=== PATIENT | male | born 1945 | race Caucasian/White ===

== ENCOUNTER 2016-06-22 09:40 | Emergency (ER) | payer OTHER ==
--- NOTE | 2016-06-22 10:00 | PDOC ---
Dizziness HPI - General Chief Complaint: Neurological Complaints Stated Complaint: DIZZINESS STARTING THIS AM Date Seen by Provider: 06/22/16 Time Seen by Provider: 09:53 Source: POSITIVE: Patient Exam Limitations: POSITIVE: No limitations Nurse's Notes Reviewed & Considered: Yes - History of Present Illness Initial Comments: Patient comes in today complaining of dizziness. Patient awoke this morning at 03:00 with dizziness, feeling as though the room was spinning around him. He has had intermittent episodes of the last 3 weeks. He was recently hospitalized with atrial fibrillation. Denies any fevers chills or sweats, nausea or vomiting or diarrhea, no body aches or joint aches. Denies any chest pain, but does have a cough and chronic shortness of breath related to his COPD. Body Location Affected: REPORTS: Head Timing: REPORTS: Abrupt Duration: <24 hours Context: REPORTS: Sleep Quality: REPORTS: Other (Dizziness) Associated Symptoms: REPORTS: Sense of Spinning Current Ability to Walk/Stand: REPORTS: Difficulty Walking Usual Ability to Walk/Stand: REPORTS: Walks w/o Assistance Aggrevated by: REPORTS: Position Changes Similar Symptoms Previously: Yes Recently seen/treated/hospitalized: Yes Any Prior Injuries Related to Current Complaint?: No - Patient Home Medications Home Medications: Home Medications Fluticasone/Salmeterol [Advair 250-50 Diskus] 2 each IH DAILY 10/19/10 Tiotropium Inhalation Cap [Spiriva Inhalation Cap] 18 mcg IH DAILY 10/19/10 Fish Oil 1,200 Mg Softgel 2 each PO DAILY 08/11/12 Garlic 1,000 mg PO DAILY 12/06/15 Amiodarone HCl 200 mg PO DAILY #30 tablet 12/16/15 Atenolol [Tenormin] 25 mg PO DAILY #30 01/06/16 Fexofenadine HCl [Ju Allergy] 180 mg PO DAILY #120 01/06/16 Lisinopril 2.5 mg PO DAILY #30 tab 01/06/16 Acetaminophen [Tylenol] 500 mg PO QD #0 tab 01/07/16 Finasteride 5 mg PO DAILY #90 tab 01/14/16 Omeprazole 1 cap PO DAILY #90 cap 01/14/16 Tamsulosin HCl 1 cap PO QHS #90 cap 01/14/16 Furosemide 1 tab PO DAILY #30 tab 01/17/16 Fluticasone Propionate 1 spr JANEE PRN #1 bottle 01/22/16 Simvastatin 1 tab PO DAILY #90 tab 04/11/16 Hydrocodone/Acetaminophen [Hydrocodon-Acetaminophen 5-325] 1 tab-cap PO Q6H # 100 tab 05/05/16 Finasteride [Proscar] 5 mg PO BEDTIME 06/22/16 - Patient Allergies Allergies/Adverse Reactions: Allergies Allergy/AdvReac Type Severity Reaction Status Date / Time Penicillins Allergy Unknown NOT Verified 06/22/16 09:57 APPLICABLE ONIONS Allergy Unknown Anaphylaxis Uncoded 06/22/16 09:57 Past Medical History - heen HEENT History: Hard of Hearing, Dentures/Partials, Other (please comment) Additional HEENT History: WEARS GLASSES. Has hearing aids but doesn't wear them. Top and bottom dentures. Cardiovascular History: Hypertension, Congenital Heart Disease, Hyperlipidemia Additional Cardiovasular History: Hx of cardiomyopathy...ejection fraction of 30 %. Respiratory History: Asthma, COPD, Home Oxygen Use, Home CPAP Use Additional Respiratory History: USES O2 1.5L @[facility] WITH CPAP. 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 Htn - parents, siblings. Sister - cancer (breast). Dad -lung cancer ROS - Limitations ROS Limitations: No Limitations Constitution: REPORTS: Denies Symptoms Cardiovascular: REPORTS: Blood Pressure Problem, Edema Respiratory: REPORTS: Shortness Of Breath, Wheezing Neurological: REPORTS: Denies Neuro Symptoms Gastrointestinal: REPORTS: Denies GI Symptoms Endocrine: REPORTS: Denies Symptoms Musculoskeletal: REPORTS: Denies MS Symptoms Genitourinary: REPORTS: Denies Symptoms Eyes: REPORTS: Denies Symptoms ENT: REPORTS: Denies Symptoms Skin: REPORTS: Denies Skin Symptoms Lympathic: REPORTS: Denies Lympathic Symptoms Immunologic: POSITIVE: Denies Symptoms Psychiatric: POSITIVE: Denies Psych Symptoms Dizziness PE - General Appearance General Appearance: POSITIVE: No Acute Distress, Alert - HEENT HEENT: POSITIVE: Head Inspection Nml, Eyes Inspection Nml, Ears Inspection Nml, Nose Inspection Nml, PERRL, EOMI - Pupil Size Pupil Size: 5 mm: Bilateral - Neck Neck: POSITIVE: Supple - Respiratory Respiratory: POSITIVE: No Respiratory Distress, Wheezes - Cardiovascular Cardiovascular: POSITIVE: Regular Rate & Rhythm, No Murmur, No Gallop, Heart Sounds Normal - Abdomen Abdomen: Soft: (All Quadrants), Normal Bowel Sounds: (All Quadrants), Denies Tenderness: (All Quadrants) - Skin Skin: POSITIVE: Intact, Normal For Race, Warm, Dry, No Rash - Extremities Extremity: Non-Tender: (All Extremities), Normal ROM: (All Extremities), Normal Inspection: (All Extremities) - Neuro/Psych Neuro/Psych: POSITIVE: Alert, Affect Appropriate, Mood Appropriate, Normal Speech, Normal Cognition Cranial Nerves: POSITIVE: Normal As Tested, No Evidence of Acute CVA Cerebellar: POSITIVE: Normal As Tested Sensorimotor: POSITIVE: No Motor Deficits, No Sensory Deficits Dizziness Progress - Results Reviewed by me Xrays/CTs/US Reviewed by me: Yes Discussed with Radiologist: Yes Lab Results Reviewed: Yes Lab Results:: Laboratory Results 06/22/16 Range/Units 10:20 WBC 8.06 (4.8-10.8) 10^3/uL RBC 4.80 (4.70-6.10) 10^6/uL Hgb 12.5 L (14.0-18.0) g/dL Hct 40.0 L (42.0-52.0) % MCV 83.3 (80-90) FL MCH 26.0 L (27-31) PG MCHC 31.3 L (33-37) g/dL RDW Std Deviation 48.9 (39-50) fL RDW Coeff of Jesus 16.3 H (11.5-14.5) % Plt Count 281 (140-350) 10*3/uL MPV 10.2 (7.4-12.2) FL Immature Gran % (Auto) 0.1 (0-5) % Neut % (Auto) 79.3 (50-80) % Lymph % (Auto) 12.2 (10-50) % [place] % (Auto) 6.1 (5-15) % Eos % (Auto) 2.2 (0-8) % Baso % (Auto) 0.1 (0-1) % Immature Gran # (Auto) 0.01 10*3/UL Neut # (Auto) 6.39 10*3/UL Lymph # (Auto) 0.98 10*3/uL [place] # (Auto) 0.49 (0.3-0.8) 10*3/UL Eos # (Auto) 0.18 10*3/UL Baso # (Auto) 0.01 10*3/UL WBC Morphology Comment Normal morphology (NORM) Plt Morphology Comment Normal morphology (NORM) RBC Morph Comment Normal morphology (NORM) Sodium 139 (135-145) meq/L Potassium 4.4 (3.8-5.2) meq/L Chloride 101 (98-112) meq/L Carbon Dioxide 27 (23-33) meq/L Anion Gap 11 (5-20) BUN 19 (7-22) mg/dL Creatinine 1.0 (0.70-1.50) mg/dL Estimated GFR (>60 ml/min/1.73m(2)) BUN/Creatinine Ratio 19.00 (6-20) Glucose 145 H (78-110) mg/dL Calculated Osmolality 292.0 (267-292) mOsm/kg Calcium 8.8 (8.7-10.7) mg/dL Magnesium 2.2 (1.6-2.4) mg/dL Total Bilirubin 0.9 (0.3-1.2) mg/dL AST 23 (21-57) IU/L ALT 35 (21-72) IU/L Alkaline Phosphatase 54 (38-126) IU/L NT-Pro-B Natriuret Pep 961 H (0-125) PG/ML Total Protein 6.6 (6.1-8.0) g/dL Albumin 3.8 (3.5-4.8) g/dL Globulin 2.8 (2.50-4.10) g/dL Albumin/Globulin Ratio 1.30 (1.3-2.0) mg/g TSH 1.75 (0.2700-4.2000) uIU/mL Free T4 1.27 (0.93-1.71) ng/dL EKG Interpretation:: POSITIVE: Normal Sinus Rhythm - Patient's Progress Pain Medication Addressed: POSITIVE: Yes Re-Examine Time:: 15:42 (Dizziness resolved) Status: POSITIVE: Improved MDM / ED Course: Patient was brought into the emergency Department, examined, an IV was started and blood drawn and sent to the lab for studies, radiographic studies obtained. Patient received normal saline, Zofran for nausea and his dizziness resolved. Assessment: Dizziness Plan: Discharge home. CVA/Syncope Quality Measure Initiative: POSITIVE: EKG - Consult Counseled: POSITIVE: Patient, Family, RE: Lab Results, RE: Radiology Results, RE : DX, RE: Need for F/U Patient Care Time - Estimated PCT Patient Care Time (In Minutes): 60 Vital Signs - Recent Vital Signs Vital Signs: Vital Signs (Last 8 hours) Temp Pulse Pulse Resp BP Pulse Ox 06/22/16 10:15 56 L 06/22/16 09:40 97.4 F 58 L 19 152/84 96 - VS Reviewed Vital Signs Reviewed: Yes Discharge Clinical Impression: Dizziness Discharge Disposition: Discharged to Home Condition: Good Patient Instructions Given at Discharge: Dizziness (ED)
[2016-06-22] MEDS ORDERED: IPRATROPIUM/ALBUTEROL SULFATE 3 ML NEB NEB ONE (10:10)
--- NOTE | 2016-06-22 10:16 | EKG ---
[address] [place] [address] [place] [address] Measurements Intervals [place] Rate: 56 P: 65 [place]: 199 QRS: 33 QRSD: 125 T: 54 QT: 506 QTc: 497 Interpretive Statements SINUS BRADYCARDIA POSSIBLE ANTERIOR MYOCARDIAL INFARCTION ,OLD PROLONGED QTc INTERVAL Compared to ECG 01/03/2016 20:46:56 Sinus rhythm no longer present Myocardial infarct finding still present Prolonged QTc interval still present Electronically Signed On 06-22-16 12:14:14 [facility] by Amaury Vega [email or web address]
[2016-06-22] MEDS: NORMAL SALINE 10 ML SYRINGE FLUSH IVP PRN (10:20)
[2016-06-22] MEDS: IPRATROPIUM/ALBUTEROL SULFATE 3 ML NEB NEB ONE (10:21)
[2016-06-22 10:30] LABS: BASOPHILS # (AUTO) 0.01 10*3/UL; BASOPHILS % (AUTO) 0.1 % (0-1); EOSINOPHILS % (AUTO) 2.2 % (0-8); HEMOGLOBIN 12.5 g/dL (14.0-18.0); IMM GRAN % (AUTO) 0.1 % (0-5); IMM GRAN# (AUTO) 0.01 10*3/UL; LYMPHOCYTES # (AUTO) 0.98 10*3/uL; LYMPHOCYTES % (AUTO) 12.2 % (10-50); MEAN CORPUSCULAR HGB CONC 31.3 g/dL (33-37); MEAN PLATELET VOLUME 10.2 FL (7.4-12.2); MONOCYTES # (AUTO) 0.49 10*3/UL (0.3-0.8); MONOCYTES % (AUTO) 6.1 % (5-15); NEUTROPHILS # (AUTO) 6.39 10*3/UL; NEUTROPHILS % (AUTO) 79.3 % (50-80); RDW COEFFICIENT OF VARIATION 16.3 % (11.5-14.5); WHITE BLOOD COUNT 8.06 10^3/uL (4.8-10.8)
[2016-06-22 10:37] LABS: PLATELET MORPHOLOGY COMMENT NORMAL MORPHOLOGY (NORM)
[2016-06-22 10:41] LABS: BILIRUBIN,TOTAL 0.9 mg/dL (0.3-1.2); CALCIUM 8.8 mg/dL (8.7-10.7); MAGNESIUM 2.2 mg/dL (1.6-2.4); POTASSIUM 4.4 meq/L (3.8-5.2); TOTAL PROTEIN 6.6 g/dL (6.1-8.0)
[2016-06-22 10:59] VITALS: RESP 19; TEMP 97.4
[2016-06-22 11:01] LABS: FREE T4 (FREE THYROXINE) 1.27 ng/dL (0.93-1.71)
--- NOTE | 2016-06-22 12:17 | DI ---
HISTORY: Cough. COMPARISON: 03/31/2016. FINDINGS: Frontal and lateral chest radiographs, compared to 03/31/2016, demonstrate well aerated shantel ngs without evidence of pneumothorax or pleural effusion. An ill-defined air space opacity is noted adjacent to the left heart border, not well seen on the lateral image, likely involving the left lowe r lobe. The right lung is clear. The cardiomediastinal silhouette and pulmonary vascularity appear normal. Bones and extrathoracic soft tissues are unremarkable. IMPRESSION: 1. Ill-defined left lower lobe airspace opacity, possibly representing an evolving airspace infectiou s process or possibly neoplasm. NOTIFICATION: The above findings were sent to Nik Estrada in the ER Department on 06/22/2016 at 02:25 PM EST.
--- NOTE | 2016-06-22 12:37 | DI ---
HISTORY: Dizziness. COMPARISON: 02/06/2016. TECHNIQUE: Contiguous 5 mm images were obtained from the vertex through the skull base without the u se of intravenous contrast. 39 images. FINDINGS: Brain parenchyma is unremarkable. Normal appearance of the ventricles and CSF spaces. Th ere is minimal patchy hypoattenuation of the supratentorial white matter consistent with chronic smal l vessel ischemic changes. Nguyễn-white differentiation is maintained. No dense vessel sign, obscuration of the basal ganglia, loss of insular ribbon or other evidence of a cute vascular territorial infarction. There is no evidence of acute intracranial hemorrhage, herniat ion or hydrocephalus. No evidence of calvarial fracture. Visualized portions of the skull base and craniocervical junction appear normal. Paranasal sinuses are clear. The patient is edentulous. Normal appearance of the o rbits and intraorbital contents. IMPRESSION: 1. No evidence of acute intracranial abnormality.
--- NOTE | 2016-06-22 15:35 | DI ---
HISTORY: Cough. Questionable mass found on chest x-ray. COMPARISON: PA/Lat chest radiograph dated 06/22/2016. TECHNIQUE: Contiguous helical 3 mm images were obtained from the thoracic inlet through the upper ab domen after administration of 100 cc nonionic contrast. Additional images were reconstructed in bone windows with both sagittal and coronal reformats provided. 492 images FINDINGS: MEDIASTINUM: Thoracic inlet is clear. No suspicious axillary, hilar, or mediastinal adenopathy is s een. The great vessels, heart, and pericardium appear normal. Mild atheromatous calcifications seen involving the thoracic aorta and aortic arch. LUNGS/AIRWAYS: Mild focal parenchymal scarring noted at the left lung base adjacent to the cardiac a pex, likely corresponding to the finding seen on the comparison chest study. Similar finding noted a t the right lung base and the left lung apex. There is mild bilateral dependent atelectasis. The shantel ngs are otherwise clear without evidence of nodule or mass. The central airways are patent. There i s no evidence of intrabronchial lesion, bronchiectasis, or airway thickening. PLEURA: No pleural effusions, calcifications, or thickening is present. ABDOMEN: Visualized portions of the upper abdomen are unremarkable. MUSCULOSKELETAL: Bone mineralization is adequate. There is no acute fracture. There is mild chroni c loss of vertebral body height at T6-T9 and L1. IMPRESSION: 1. No evidence of acute cardiac or pulmonary disease. 2. Mild multifocal parenchymal scarring at both lung bases.
== END 2016-06-22 16:21 | disposition home or self-care (01) ==
LOC: ER 09:40
DX: R42 Dizziness and giddiness (principal); R05 Cough; J44.9 Chronic obstructive pulmonary disease, unspecified
CPT/HCPCS: 70450; 71020; 71260; 80053; 83735; 83880; 84439; 84443; 85025; 93005; 93010; 94640; 99283 ×2; J7620

== ENCOUNTER → 2016-07-02 | Outpatient (CLI) | payer OTHER ==
[2016-07-02 12:58] LABS: BASOPHILS # (AUTO) 0.01 10*3/UL; BASOPHILS % (AUTO) 0.1 % (0-1); EOSINOPHILS % (AUTO) 0.2 % (0-8); HEMATOCRIT 43.8 % (42.0-52.0); HEMOGLOBIN 13.8 g/dL (14.0-18.0); IMM GRAN % (AUTO) 0.4 % (0-5); IMM GRAN# (AUTO) 0.04 10*3/UL; LYMPHOCYTES % (AUTO) 5.6 % (10-50); MEAN CORPUSCULAR HEMOGLOBIN 26.5 PG (27-31); MEAN CORPUSCULAR HGB CONC 31.5 g/dL (33-37); MONOCYTES # (AUTO) 0.21 10*3/UL (0.3-0.8); MONOCYTES % (AUTO) 1.9 % (5-15); NEUTROPHILS # (AUTO) 9.89 10*3/UL; NEUTROPHILS % (AUTO) 91.8 % (50-80); RDW COEFFICIENT OF VARIATION 16.3 % (11.5-14.5); RED BLOOD COUNT 5.21 10^6/uL (4.70-6.10); WHITE BLOOD COUNT 10.77 10^3/uL (4.8-10.8)
[2016-07-02 13:00] LABS: PLATELET MORPHOLOGY COMMENT NORMAL MORPHOLOGY (NORM)
[2016-07-02 13:28] LABS: CALCIUM 9.5 mg/dL (8.7-10.7); POTASSIUM 4.9 meq/L (3.8-5.2)
--- NOTE | 2016-07-02 15:50 | DI ---
History: Chest x-ray followup to chest CT. Prior examination: 06/22/16. Procedure: 2 view study. Findings: There is no evidence of focal infiltrate. No effusion identified. No cardiac enlargement. L ungs are slightly hyperexpanded. Impression: Slight pulmonary hyperexpansion. No focal or acute pulmonary process observed
== END ==
LOC: LAB 12:42
PROVIDERS: ATTEND Internal Medicine
DX: E11.59 Type 2 diabetes mellitus with other circulatory complications (principal); J44.9 Chronic obstructive pulmonary disease, unspecified; R93.8 Abnormal findings on diagnostic imaging of other specified body structures; R79.9 Abnormal finding of blood chemistry, unspecified; R42 Dizziness and giddiness; R06.82 Tachypnea, not elsewhere classified; I10 Essential (primary) hypertension; E66.01 Morbid (severe) obesity due to excess calories; Z87.891 Personal history of nicotine dependence
CPT/HCPCS: 36415; 71020; 80048; 83880; 85025; 99214; G0463

== ENCOUNTER → 2016-07-23 | Outpatient (CLI) | payer OTHER | LOC: MMPC 09:00 | PROVIDERS: ATTEND Internal Medicine | DX: E11.9 Type 2 diabetes mellitus without complications (principal); I10 Essential (primary) hypertension; J44.9 Chronic obstructive pulmonary disease, unspecified; N19 Unspecified kidney failure; E78.5 Hyperlipidemia, unspecified | CPT/HCPCS: G0108 ==

== ENCOUNTER → 2016-08-01 | Outpatient (CLI) | payer OTHER ==
--- NOTE | 2016-08-01 12:11 | DI ---
XR WRIST COMPLETE MIN 3VW,08/01/2016 10:32 AM: Clinical History: None this in fingers. Previous Exam: January 13, 2013 contralateral wrist. Findings: 3 views of the left wrist are obtained, and demonstrate a curvilinear calcification involving the lef t ulnar styloid. There are no acute fractures identified. Impression: Old injury of the left ulnar styloid.
== END ==
LOC: ORTHO 10:39
PROVIDERS: ATTEND Orthopaedic Surgery
DX: R20.0 Anesthesia of skin (principal); G56.22 Lesion of ulnar nerve, left upper limb
CPT/HCPCS: 73110; 99214; G0463

== ENCOUNTER → 2016-08-13 | Outpatient (CLI) | payer OTHER | LOC: MOB LAB 12:14 | PROVIDERS: ATTEND Internal Medicine | DX: R79.9 Abnormal finding of blood chemistry, unspecified (principal); I10 Essential (primary) hypertension; I48.0 Paroxysmal atrial fibrillation; J44.9 Chronic obstructive pulmonary disease, unspecified; F17.210 Nicotine dependence, cigarettes, uncomplicated | CPT/HCPCS: 36415; 83880 ==

== ENCOUNTER → 2016-08-13 | Outpatient (CLI) | payer OTHER | LOC: MMPC 11:11 | PROVIDERS: ATTEND Internal Medicine | DX: J44.9 Chronic obstructive pulmonary disease, unspecified (principal); I10 Essential (primary) hypertension; I48.0 Paroxysmal atrial fibrillation; N40.1 Benign prostatic hyperplasia with lower urinary tract symptoms ==

== ENCOUNTER → 2016-08-18 | Outpatient (CLI) | payer OTHER | LOC: MMPC 10:00 | PROVIDERS: ATTEND Orthopaedic Surgery | DX: G56.22 Lesion of ulnar nerve, left upper limb (principal); G56.02 Carpal tunnel syndrome, left upper limb | CPT/HCPCS: 99213; G0463 ==

== ENCOUNTER → 2016-08-26 | Outpatient (CLI) | payer OTHER ==
[2016-08-26 09:45] LABS: HEMATOCRIT 43.6 % (42.0-52.0); HEMOGLOBIN 13.4 g/dL (14.0-18.0); MEAN CORPUSCULAR HEMOGLOBIN 26.9 PG (27-31); MEAN CORPUSCULAR HGB CONC 30.7 g/dL (33-37); MEAN PLATELET VOLUME 10.3 FL (7.4-12.2); RDW COEFFICIENT OF VARIATION 15.2 % (11.5-14.5); RED BLOOD COUNT 4.98 10^6/uL (4.70-6.10); WHITE BLOOD COUNT 11.71 10^3/uL (4.8-10.8)
[2016-08-26 09:57] LABS: CALCIUM 9.1 mg/dL (8.7-10.7); POTASSIUM 4.7 meq/L (3.8-5.2)
== END ==
LOC: LAB 09:28
PROVIDERS: ATTEND Orthopaedic Surgery
DX: G56.02 Carpal tunnel syndrome, left upper limb (principal); G56.22 Lesion of ulnar nerve, left upper limb; I10 Essential (primary) hypertension; N17.9 Acute kidney failure, unspecified; J44.9 Chronic obstructive pulmonary disease, unspecified; Z22.322 Carrier or suspected carrier of Methicillin resistant Staphylococcus aureus
CPT/HCPCS: 36415; 80048; 85027; 87641

== ENCOUNTER 2016-09-02 09:13 | Day surgery (SDC) | payer OTHER ==
[~2016-09-02 09:13] MED LIST: Clindamycin 900mg (Premix) 50 ML IV ONE; LIDOCAINE W/ SODIUM BICARB 0.5 ML SYR ONE; Lactated Ringers 1,000 ML PRIMARY IV ONE
[2016-09-02] MEDS ORDERED: BACITRACIN 50,000 UNIT VIAL IRRIG ONE (09:28)
[2016-09-02] MEDS ORDERED: BUPivacaine Inj 0.25% PF - 10ml vial ONE (09:28)
[2016-09-02] MEDS ORDERED: Sodium Chloride 0.9% vial 10 ML ONE (09:29)
[2016-09-02 10:16] VITALS: RESP 26
[2016-09-02] MEDS ORDERED: fentaNYL Inj 100 MCG/2 ML VIAL ONE (10:19)
[2016-09-02] MEDS ORDERED: LIDOCAINE 2%/ EPI 1:200,000 - 20 ML VIAL ONE (10:19)
[2016-09-02] MEDS ORDERED: BUPIVACAINE 0.5% W/ EPI - 10 ML VIAL ONE (10:19)
[2016-09-02] MEDS ORDERED: MIDAZOLAM 5 MG/1 ML ONE (10:19)
--- NOTE | 2016-09-02 11:23 | CRNA.PROCE ---
Nerve Block Documentation - - Safety Measures: Time Out Taken, Site Verified - - Type of Nerve Block Used: Left Infraclavicular Block Position for Nerve Block: Supine Moniters Used During Block: EKG, SPO2, NIBP Oxygen Sumpplented: Yes Sedation Used - Enter Amount in Comment Field: Midazolam (mg): Yes (3mg iv), Fentanyl (mcg): Yes (50mcg iv) Skin Prep Used: ChloroPrep Technique: Nerve Stimulator Nerve Block Needle Used: 80 mm ProBlk II Stimulation Hz: 1.0 Stimulation Staring mA: 1.2 Stimulation Ending mA: 0.5 Local Anesthetic - Enter Amt in Comment Field: 0.5 % Bupivicaine with Epinephrine 1:200,000 (mL): Yes (20ml), 2 % Xylocaine with Epinephrine 1:200, 000 (mL): Yes (20ml)
[2016-09-02] MEDS ORDERED: Lactated Ringers 1,000 ML PRIMARY IV ONE (11:49)
[2016-09-02] MEDS ORDERED: MORPHINE SULFATE 2 MG/1 ML IVP PRN (13:25)
[2016-09-02] MEDS ORDERED: MAG HYDROX/AL HYDROX/SIMETH 30 ML SUSP PO PRN (13:25)
[2016-09-02] MEDS ORDERED: Ondansetron ODT Tab 8 MG TAB PO PRN (13:25)
[2016-09-02] MEDS ORDERED: ACETAMINOPHEN 325 MG TABLET PO PRN (13:25)
[2016-09-02] MEDS ORDERED: NORMAL SALINE 10 ML SYRINGE FLUSH IVP PRN (13:25)
[2016-09-02] MEDS ORDERED: Prochlorperazine Tab 10 MG TAB PO PRN (13:25)
[2016-09-02] MEDS ORDERED: CALCIUM CARBONATE 500 MG (TUMS) CHEWABLE TABLET PO PRN (13:25)
[2016-09-02] MEDS ORDERED: ONDANSETRON 4 MG/2 ML VIAL IVP PRN (13:25)
[2016-09-02] MEDS ORDERED: BISACODYL 10 MG SUPPOSITORY RECTAL PRN (13:25)
[2016-09-02] MEDS ORDERED: BISACODYL 5 MG TABLET PO PRN (13:25)
[2016-09-02] MEDS ORDERED: IBUPROFEN 400 MG TABLET PO PRN (13:25)
[2016-09-02] MEDS ORDERED: diphenhydrAMINE 25 MG CAPSULE PO PRN (13:25)
[2016-09-02] MEDS ORDERED: HYDROcodone-APAP 7.5 MG-325 MG TABLET PO PRN (13:25)
[2016-09-02] MEDS ORDERED: Lactated Ringers 1,000 ML PRIMARY IV SCH (13:30)
[2016-09-02 15:34] VITALS: TEMP 97.7
== END 2016-09-02 14:34 | disposition home or self-care (01) ==
LOC: SDSC 09:13
PROVIDERS: ATTEND Orthopaedic Surgery
DX: G56.22 Lesion of ulnar nerve, left upper limb (principal)
CPT/HCPCS: 64718; 87641; A4216; J2704; J3010; J2250; J3490; J7120

== ENCOUNTER → 2016-09-05 | Outpatient (CLI) | payer OTHER | LOC: MMPC 10:00 | PROVIDERS: ATTEND Orthopaedic Surgery | DX: G56.22 Lesion of ulnar nerve, left upper limb (principal) ==

== ENCOUNTER → 2016-09-23 | Outpatient (CLI) | payer OTHER | LOC: MMPC 10:00 | PROVIDERS: ATTEND Orthopaedic Surgery | DX: G56.22 Lesion of ulnar nerve, left upper limb (principal); G56.02 Carpal tunnel syndrome, left upper limb ==

== ENCOUNTER → 2016-11-07 | Outpatient (CLI) | payer OTHER | LOC: MMPC 10:00 | PROVIDERS: ATTEND Orthopaedic Surgery | DX: G56.22 Lesion of ulnar nerve, left upper limb (principal) ==

== ENCOUNTER → 2016-12-17 | Outpatient (CLI) | payer OTHER | LOC: MMPC 11:11 | PROVIDERS: ATTEND Internal Medicine | DX: J44.9 Chronic obstructive pulmonary disease, unspecified (principal); K21.9 Gastro-esophageal reflux disease without esophagitis; I10 Essential (primary) hypertension; I48.0 Paroxysmal atrial fibrillation; E78.5 Hyperlipidemia, unspecified; E66.9 Obesity, unspecified; J30.9 Allergic rhinitis, unspecified; N40.0 Benign prostatic hyperplasia without lower urinary tract symptoms; E11.59 Type 2 diabetes mellitus with other circulatory complications | CPT/HCPCS: 99213; G0463 ==

== ENCOUNTER → 2017-01-16 | Outpatient (CLI) | payer OTHER | LOC: MMPC 10:00 | PROVIDERS: ATTEND Orthopaedic Surgery | DX: G56.22 Lesion of ulnar nerve, left upper limb (principal); G56.02 Carpal tunnel syndrome, left upper limb; Z98.890 Other specified postprocedural states | CPT/HCPCS: 99213; G0463 ==

== ENCOUNTER → 2017-02-04 | Outpatient (CLI) | payer OTHER | LOC: LAB 14:03 | PROVIDERS: ATTEND Internal Medicine | DX: G56.22 Lesion of ulnar nerve, left upper limb (principal); G56.02 Carpal tunnel syndrome, left upper limb | CPT/HCPCS: 87641 ==

== ENCOUNTER 2019-04-01 13:28 | Inpatient (IN) ==
[2019-04-01] MEDS ORDERED: methylPREDNISolone 125 MG/2 ML VIAL IVP ONE (14:00)
[2019-04-01 14:15] LABS: Hematocrit [HCT] 36.6 % (42.0-52.0); Hemoglobin [HGB] 11.2 g/dL (14.0-18.0); MEAN CORPUSCULAR HGB CONC 30.6 g/dL (33-37); MEAN CORPUSCULAR VOLUME 87.4 FL (80-90); MEAN PLATELET VOLUME 10.1 FL (7.4-12.2); RED BLOOD COUNT 4.19 10^6/uL (4.70-6.10)
[2019-04-01 14:16] LABS: BASOPHILS # (AUTO) 0.05 10*3/UL; BASOPHILS % (AUTO) 0.4 % (0-1); EOSINOPHILS # (AUTO) 0.49 10*3/UL; EOSINOPHILS % (AUTO) 3.7 % (0-8); LYMPHOCYTES # (AUTO) 1.05 10*3/uL; MONOCYTES # (AUTO) 0.76 10*3/UL (0.3-0.8); MONOCYTES % (AUTO) 5.7 % (5-15); NEUTROPHILS # (AUTO) 10.82 10*3/UL; NEUTROPHILS % (AUTO) 81.9 % (50-80); PLATELET MORPHOLOGY COMMENT NORMAL MORPHOLOGY (NORM); RBC MORPHOLOGY COMMENT NORMAL MORPHOLOGY (NORM); WBC MORPHOLOGY COMMENT NORMAL MORPHOLOGY (NORM)
[2019-04-01 14:22] LABS: BUN/CREATININE RATIO 17.14 (6-20)
[2019-04-01 14:31] LABS: ABG BASE EXCESS -1 MMOL/L (-2-2); ABG OXYGEN SATURATION 93 % (90-100); ABG PCO2 41 MMHG (34-38); ABG PH 7.38 (7.35-7.45); ABG PO2 69 MMHG (65-75); ALLEN TEST Y
[2019-04-01] MEDS ORDERED: cefTRIAXone Inj 1 GM in Sodium Chloride 0.9% 100 ML IV ONE (16:13)
[2019-04-01] MEDS ORDERED: LIDOCAINE W/ SODIUM BICARB 0.5 ML SYR SUBD PRN (17:16)
[2019-04-01] MEDS ORDERED: ONDANSETRON 4 MG/2 ML VIAL IVP PRN (17:16)
[2019-04-01] MEDS ORDERED: CALCIUM CARBONATE 500 MG (TUMS) CHEWABLE TABLET PO PRN (17:16)
[2019-04-01] MEDS ORDERED: DOCUSATE 100 MG CAPSULE PO PRN (17:16)
[2019-04-01] MEDS ORDERED: Influenza 19-20 Vaccine (6mo+) 60 MCG/0.5 ML SYRINGE IM ONE (17:23)
[2019-04-01] MEDS ORDERED: ALBUTEROL SULFATE 2.5 MG/3 ML NEB PRN (17:24)
[2019-04-01] MEDS ORDERED: LEVALBUTEROL HCL 1.25 MG/3 ML NEB PRN (17:30)
[2019-04-01] MEDS: LEVALBUTEROL HCL 1.25 MG/3 ML NEB SCH (18:45)
[2019-04-01] MEDS: FLUTICASONE/SALMETEROL 500/50 UD INHALER INH SCH (18:49)
[2019-04-01] MEDS ORDERED: IPRATROPIUM/ALBUTEROL SULFATE 3 ML NEB NEB SCH (19:00)
[2019-04-01] MEDS: TAMSULOSIN 0.4 MG CAPSULE PO SCH (20:41)
[2019-04-01] MEDS: methylPREDNISolone 40 MG/1 ML VIAL IVP SCH (20:41)
[2019-04-01] MEDS: FINASTERIDE 5 MG TABLET PO SCH (20:41)
[2019-04-01] MEDS: FERROUS SULFATE 325 MG TABLET PO SCH (20:41)
[2019-04-01] MEDS: Simvastatin Tab 40 MG TAB PO SCH (20:42)
[2019-04-01] MEDS ORDERED: metFORMIN 500 MG TABLET PO SCH (21:00)
[2019-04-02] MEDS: LEVALBUTEROL HCL 1.25 MG/3 ML NEB SCH ×4 (01:44→18:52)
[2019-04-02] MEDS: methylPREDNISolone 40 MG/1 ML VIAL IVP SCH ×4 (03:09→20:22)
[2019-04-02] MEDS: ACETAMINOPHEN 325 MG TABLET PO PRN ×3 (03:11→21:32)
[2019-04-02] MEDS: TIOTROPIUM BROMIDE 18 MCG CAPSULE INH SCH ×2 (04:39→06:27)
[2019-04-02 05:25] LABS: Hematocrit [HCT] 32.6 % (42.0-52.0); Hemoglobin [HGB] 10.2 g/dL (14.0-18.0); MEAN CORPUSCULAR HGB CONC 31.3 g/dL (33-37); MEAN CORPUSCULAR VOLUME 85.8 FL (80-90); MEAN PLATELET VOLUME 10.4 FL (7.4-12.2)
[2019-04-02 05:42] LABS: BAND NEUTROPHILS % 0 % (0-10); BASOPHILS % (MANUAL) 0 % (0-1); EOSINOPHILS % (MANUAL) 0 % (0-8); METAMYELOCYTES % 0 %; MONOCYTES % (MANUAL) 0 % (0-12); MYELOCYTES % 0 %; NEUTROPHILS % (MANUAL) 94 % (50-80); PLATELET MORPHOLOGY COMMENT NORMAL MORPHOLOGY (NORM); PROMYELOCYTES % 0 %; RBC MORPHOLOGY COMMENT NORMAL MORPHOLOGY (NORM); WBC MORPHOLOGY COMMENT NORMAL MORPHOLOGY (NORM)
[2019-04-02] MEDS: FLUTICASONE/SALMETEROL 500/50 UD INHALER INH SCH ×2 (06:24→18:51)
[2019-04-02] MEDS: AmLODIPine Tab 5 MG TABLET PO SCH (08:47)
[2019-04-02] MEDS: ATENOLOL 25 MG TABLET PO SCH (08:47)
[2019-04-02] MEDS: metFORMIN 500 MG TABLET PO SCH ×2 (08:47→20:23)
[2019-04-02] MEDS ORDERED: metFORMIN 500 MG TABLET PO SCH (09:00)
[2019-04-02] MEDS ORDERED: FERROUS SULFATE 325 MG TABLET PO SCH (09:00)
[2019-04-02] MEDS ORDERED: FINASTERIDE 5 MG TABLET PO SCH (09:00)
[2019-04-02] MEDS ORDERED: cefTRIAXone Inj 2 GM in Sodium Chloride 0.9% 100 ML IV SCH (17:30)
[2019-04-02] MEDS: FERROUS SULFATE 325 MG TABLET PO SCH (20:23)
[2019-04-02] MEDS: FINASTERIDE 5 MG TABLET PO SCH (20:23)
[2019-04-02] MEDS: TAMSULOSIN 0.4 MG CAPSULE PO SCH (20:23)
[2019-04-02] MEDS: Simvastatin Tab 40 MG TAB PO SCH (21:32)
[2019-04-03] MEDS: LEVALBUTEROL HCL 1.25 MG/3 ML NEB SCH ×2 (02:03→06:39)
[2019-04-03] MEDS: methylPREDNISolone 40 MG/1 ML VIAL IVP SCH ×2 (03:02→08:27)
[2019-04-03] MEDS: ACETAMINOPHEN 325 MG TABLET PO PRN (03:06)
[2019-04-03 04:53] LABS: BUN/CREATININE RATIO 30.83 (6-20)
[2019-04-03] MEDS: FLUTICASONE/SALMETEROL 500/50 UD INHALER INH SCH (06:41)
[2019-04-03] MEDS: TIOTROPIUM BROMIDE 18 MCG CAPSULE INH SCH (06:41)
[2019-04-03 06:42] VITALS: RESP 20
[2019-04-03] MEDS: ATENOLOL 25 MG TABLET PO SCH (08:27)
[2019-04-03] MEDS: AmLODIPine Tab 5 MG TABLET PO SCH (08:27)
[2019-04-03] MEDS: metFORMIN 500 MG TABLET PO SCH (08:27)
[2019-04-03] MEDS ORDERED: Influenza 19-20 Vaccine (6mo+) 60 MCG/0.5 ML SYRINGE IM ONE (08:30)
[2019-04-03] MEDS ORDERED: methylPREDNISolone 125 MG/2 ML VIAL IVP SCH (09:45)
[2019-04-03 09:57] VITALS: BP 156/67; TEMP 97.8; O2SAT 92
== END 2019-04-03 10:29 | disposition home or self-care (01) | DRG 192 ==
LOC: ER 13:28 → MED/SURG 16:31
PROVIDERS: ADMIT Internal Medicine; ATTEND Internal Medicine